=== PATIENT | male | born 1940 | race Caucasian/White ===

== ENCOUNTER 2023-09-06 07:26 | Inpatient (IN) | payer OTHER, SELFPAY ==
--- NOTE | 2023-08-29 10:16 | HPS.HSE ---
Family Physician
-
Family Physician: Elier Howard
Cardiology: Kishor Garibay
Chief Complaint
-
'Valve Problem'
History of Present Illness
Mr. Fidelina Clifton is a very pleasant 83-year-old gentleman with past medical history significant for moderate to severe aortic stenosis resulting in 1 admission for CHF to [facility] last Spring. He was diuresed for about 20 pounds
at that time. His echocardiogram from 12/29/2022 demonstrated a mildly dilated aortic root at 4 cm, and ascending aorta at 4.1 cm. He had calcified aortic valve with severe stenosis with peak velocity of 4.2 m/s and peak/mean gradients of 70/41 mmHg
respectively with calculated ISI of 0.6 (averaged in atrial fibrillation). He had mild mitral and tricuspid regurgitation. He had a mildly dilated LV with an LVEF estimated at 45%. He was transferred to [facility] for cardiac cath. His
cardiac catheterization demonstrated no significant CAD. It showed moderate with MG 30mmHg and ISI 1.4. He resides at [facility] and was discharged back to there on Bumex. He states that since that admission he has lost a
total of 100 pounds. He denies RENDON, orthopnea, chest pain, PND, palpitations. He states he can perform his ADLs without limitations but does not seem to ambulate. He did tell Dr. Murphy he was making progress with physical therapy and ambulating
50-100 feet with a walker. Today he states that he is no longer receiving therapy. He presents today in a reclining wheelchair and refused to stand for weight or to give urine sample.
Patient was reviewed with the Heart Team at the shared decision making meeting. Reviewed Echocardiogram and cardiac catheterization. Aortic stenosis felt to be severe and Heart team felt patient would benefit from TAVR. Plan is to proceed with 34mm
Evolut valve via transfemoral access. Reviewed with the patient and his daughter the risks of TAVR including PPM, Stroke and Bleeding. Allowed for and answered questions. Medication list reviewed. Patient to remain on all medications until day of
procedure. Will only take aspirin 81mg the morning of his TAVR procedure. Arrival time will be 0730.
Medical History
Past Medical History
Past Medical History: Reports CAD, CHF, HTN, Hypercholesterolemia, Hypothyroidism, NIDDM, Valvular Disease (Aortic stenosis, Mild TR and MR) and Other (Anemia, h/o JOSE, Muscle weakness)
Past Surgical History: Reports Other (Cardiac catheterization 11/24/2022)
Social History
Tobacco: Former Smoker (Quit 50+ years ago)
Alcohol: None
Drug: None
Personal:
Living: [facility])
Employment: Retired
Family History
Family History: Not pertinent
Allergies / Home Medications
Allergies reflects when Allergies were last updated in [facility].
Home Medications with original date entered in [employer]
Allergy/Medication List:
Allergies:
NKDA
Medications:
Acetaminophen 500 MG Capsule 1 capsule as needed Orally every 6 hrs
Aspirin 81(Aspirin) 81 MG Tablet Delayed Release 1 tablet Orally Once a day
Bumetanide 1 MG Tablet 1 tablet Orally Once a dayCalcium Carbonate 600 MG Tablet 1 tablet with food Orally Every 8 Hours
Carboxymethylcellulose Sod PF 0.5 % Solution as directed Ophthalmic Every 8 Hours
Crestor(Rosuvastatin Calcium) 10 MG Tablet 1 tablet Orally Once a day
Dulcolax(Bisacodyl) 10 MG Suppository 1 tablet as needed Orally Once a day
Ferrous Sulfate 325 (65 Fe) MG Tablet 1 tablet Orally Twice a Day
Glucophage
Lantus(Insulin Glargine) 100 UNIT/ML Solution as directed Subcutaneous
Magnesium Gluconate 27.5 MG Tablet 1 tablet Orally Twice a Day
Miconazole Antifungal(Miconazole Nitrate) 2 % Cream 1 application Externally Twice a day
Milk of Magnesia(Magnesium Hydroxide) 400 MG/5ML Suspension 5 mL at least 4 hours between doses as needed Orally Three Times a Day
Potassium Chloride ER 20 MEQ Tablet Extended Release 1 tablet with food Orally Once a day
Protonix(Pantoprazole Sodium) 20 MG Tablet Delayed Release 1 tablet Orally Once a day
Senna 8.6 MG Tablet 2 tablets at bedtime as needed Orally Once a day
Synthroid(Levothyroxine Sodium) 175 MCG Tablet 1 tablet in the morning on an empty stomach Orally Once a day
Tamsulosin HCl 0.4 MG Capsule 1 capsule Orally Once a day
traMADol HCl 50 MG Tablet 1 tablet as needed Orally Every 6 Hours
Voltaren 1 % Gel as directed Externally Three Times a Day
Review of Systems
-
History Source: Patient
Constitutional: Reports No Symptoms
EENT: Reports No Symptoms
Respiratory: Reports No Symptoms
Cardiac: Reports No Symptoms
Abdomen/GI: Reports Other (occasional bowel irregularity r/t diverticulosis)
: Reports No Symptoms
Musculoskeletal: Reports Edema (bilateral LE)
Skin: Reports No Symptoms
Neurological: Reports Weakness (LE)
Endocrine: Reports No Symptoms
Hematologic/Lymphatic: Reports No Symptoms
Psych: Reports No Symptoms
Physical Exam
Physical Exam
General: Well Developed, No Apparent Distress and Obese
HEENT: NormoCephalic and Moist mucous membranes
Respiratory: Clear and Non Labored Respirations
Cardiac: S1/S2, Regular Rhythm and Murmur (Grade II/)
Breast: Deferred by me
GI: Soft, Non Distended and Normal Bowel Sounds
Rectal: Deferred by Provider
Genito-urinary: Deferred by me
Musculoskeletal: Edema, Left Lower Extremity (trace) and Edema, Right Lower Extremity (trace)
Skin: Warm and Dry
Neuro: AO x 3
Psych: Calm
Laboratory Results
-
H/H: 12.3/35.2
BUN/Creat: 32/1.4
GFR: 49.56
Albumin: 4.2
Data Reviewed
-
Diagnostic Radiology: Report Reviewed by me (Chest x-ray with no scute cardio[pulmonary abnormality)
Medical Tests (Nuc Med, Echo, EKG etc): Report Reviewed by me (NSR, 65bpm, no conduction issues noted)
Lab Data: Labs Reviewed by me (H/H:12.3/35.2, BUN/Creat: 32/1.4, GFR: 49.56, Alb:4.2)
Old Records: Reviewed (Echocardiogram from [facility], Cardiac Cath from [facility]. Dr. Alvarez and Dr. Murphy Consult Notes)
Impression/Plan
-
IMPRESSION:
Severe aortic stenosis
PLAN:
-Proceed with TF-TAVR utilizing a 34mm Evolut Valve
-Continue Aspirin 81mg daily
-POD #1/#30 Echocardiogram
-Cardiac rehab consult
[2023-08-29 12:10] VITALS: BMI 34.1
[2023-08-29 12:58] LABS: Urine Albumin Trace (Neg - Trace); Urine Bilirubin Negative (Negative); Urine Character Very Cloudy (Clear); Urine Color Yellow; Urine Glucose Negative (Negative); Urine Ketone Negative (Negative); Urine Leukocyte 2+ (Negative); Urine Nitrite Negative (Negative); Urine Occult Blood 1+ (Negative); Urine Urobilinogen Negative (Neg - 1+)
[2023-08-29 13:00] LABS: % Basophils 0.9 % (0-2); % Eosinophils 4.3 % (0-6); % Immature Granulocytes 0.2 % (0-0.5); % Lymphocytes 16.7 % (20.5-51.1); % Neutrophils 68.9 % (42.2-75.2); Absolute Basophils 0.1 10^3/uL (0-0.2); Absolute Eosinophils 0.3 10^3/uL (0-0.7); Absolute Lymphocytes 1.1 10^3/uL (1.2-3.4); Absolute Monocytes 0.6 10^3/uL (0.1-0.6); Absolute Neutrophils 4.5 10^3/uL (1.4-6.5); Hematocrit 35.2 % (39.0-52.0); Hemoglobin 12.3 g/dL (13.0-18.0); Mean Corp Hgb Conc. 34.9 g/dL (33.0-37.0); Mean Corpuscular Hgb 33.5 pg (27.0-31.0); Mean Corpuscular Volume 95.9 fL (80.0-94.0); Mean Platelet Volume 8.9 fL (7.4-10.4); Nucleated Red Blood Cells % 0 % (-); Platelet Count 169 10^3/uL (130-400); Red Blood Cell Count 3.67 10^6/uL (4.70-6.10); Red Cell Dist. Width 12.3 % (11.5-14.5); White Blood Cell Count 6.5 10^3/uL (4.8-10.8)
[2023-08-29 13:12] LABS: INR 1.01; PT 13.3 Sec (11.4-14.6)
[2023-08-29 13:13] LABS: ALT (SGPT) 14 U/L (0-50); AST (SGOT) 21 U/L (17-59); Albumin 4.2 g/dl (3.5-5.0); Alkaline Phosphatase 94 U/L (38-126); Blood Urea Nitrogen 32 mg/dl (9-20); Calcium 9.2 mg/dl (8.4-10.2); Carbon Dioxide 29 mmol/L (22-30); Chloride 99 mmol/L (98-107); Direct Bilirubin 0.5 mg/dl (0.0-0.4); Estimated Creatinine Clearance 57 ml/min; Glucose 117 mg/dl (70-99); Potassium 4.1 mmol/L (3.5-5.1); Sodium 135 mmol/L (135-145); Total Bilirubin 0.9 mg/dl (0.2-1.3); Total Protein 7.4 g/dl (6.3-8.2); eGFR 49.56
[2023-08-29 13:14] LABS: APTT 27.8 Sec (23.4-35.0)
[2023-08-29 13:21] LABS: NT-proBNP 1550 pg/ml
[2023-08-29 13:27] LABS: Urine White Cell 80-90 /HPF (0-5)
[2023-08-29 13:28] LABS: Urine Bacteria Few (Negative); Urine Red Blood Cell 0-2 /HPF (0-2)
--- NOTE | 2023-08-29 14:11 | CM ---
Chart reviewed. Met with the patient and his daughter, Mamie in PAT. Patient is currently living in the equipment operator intermodal yard care at [facility]. Patient has been living there for 2.5 years. Patient is wheelchair bound and can bear minimal
weight on his own. [facility] has a transportation service to transport him back and forth to the facility. [place] is the [employer] to arrange transportation back and forth. Reviewed preoperative and postoperative instructions
with the patient and his daughter, along with showering guidelines. Gave the patient 2 soaps. Plan is for the patient to return back to [facility].
[2023-08-30 09:34] LABS: Glycohemoglobin (HgbA1c) 6.5 % (4.0-5.6)
[2023-09-06] VITALS (20 sets, daily range): BP systolic 97–165; BP diastolic 41–83; BMI 34.6
[2023-09-06 08:08] LABS: Glucose - Point of Care 121 mg/dl (70-99)
[2023-09-06] MEDS: STERILE WATER FOR INJECTION 16 ML IV ×2 (09:35→10:30)
[2023-09-06] MEDS: ZINACEF 1500 MG IV ×2 (09:35→10:30)
--- NOTE | 2023-09-06 09:51 | W.CVOR.SURPR ---
CVOR Surgeon Immed Pre Op
-
I have examined this patient prior to performance of the scheduled procedure.
The patient's condition is unchanged from the time of the dictated/written History and
Physical and the patient is able to undergo the scheduled procedure.
[2023-09-06 10:41] LABS: ACT-LR - POC 306 Seconds (116-155)
--- NOTE | 2023-09-06 11:05 | W.IMMPOSTOP ---
Addendum entered and electronically signed by Pete Murphy MD 09/06/23 11:25:
Dictated: [id number]
Original Note:
Surgical Immed Post Op Note
-
STRUCTURAL HEART PROCEDURE NOTE: TAVR
Preoperative Dx:
Severe aortic stenosis (P/M: 75.5/47.3, ISI 0.6)
Hx of CHF
Hx of AKF
Prior SC
Hypothyroidism
DM
Postoperative Dx:
Same
Procedures:
1) L CODING QUALITY COORDINATOR access w/ fluoroscopic & tactile guidance w/ micropuncture technique, 6Fr sheath placement, limited angiography
2) L CFV access w/ fluoroscopic guidance, micropuncture technique, 6Fr sheath placement
3) Placement of temporary RV pacing wire w/ threshold testing
4) Placement of pigtail catheter in NCC w/ limited aortography & confirmation of cusp overlap view
5) R CODING QUALITY COORDINATOR access w/ fluoroscopic & tactile guidance w/ micropuncture technique, 6Fr sheath placement, limited angiography
6) Placement of perclose sutures x 2; 8Fr sheath placement
7) Serial dilation of R ileofemoral system w/ placement of 18Fr COOK sheath
8) Wire purchase across stenotic AV (AL-1, soft-tip straight, J-wire, pigtail, lunderquist) - w/ LVEDP assessment (16mmHg)
9) Fluoroscopic inspection of valve
10) Pre-TAVR BAV w/ 25mm TRUE
11) R TF TAVR w/ placement of 34mm EVOLUT FX
12) Completion aortography
13) Completion TTE
14) Removal of valve-delivery system/in-line sheath w/ R CODING QUALITY COORDINATOR mgmt w/ perclose sutures x 2; manual pressure
15) Completion R ileofemoral angiography
16) Removal of L CODING QUALITY COORDINATOR 6Fr sheath w/ mgmt w/ 6Fr angioseal x 1; manual pressure
17) Removal of temporary pacing wire and L CFV 6Fr sheath w/ manual pressure
Laborer Road:
Dr. Tha Alvarez
Cardiac Surgeon:
Dr. Pete Murphy
Anesthesia:
MAC & local to B/L groins
Implants:
Perclose sutures x 2
6Fr angioseal x 1
Medtronix FX TAVR valve; 34mm, SN: [id number]
Cath Data:
Start: 1006hrs, Deploy: 1048hrs, End: 1101hrs
FT: 11min, mGy: 646.52, DAP: 66.3314, Contrast: 99mL
Post-TTE: ajtpy-ho-uxbb PVL; mean gradient 11mmHg
Complications:
No significant
New BBB
Condition:
Stable/guarded to recovery
--- NOTE | 2023-09-06 11:30 | ITS.CL.TAVR ---
Outboard Technician - TAVR Report
TAVR PRocedure
Procedure Report:
TRANSCATHETER AORTIC VALVE REPLACEMENT REPORT
Date: 09/06/2023
Referring physician: Kishor Garibay DO
Operators: Tha Alvarez MD, Pete Murphy MD
Procedure: Conscious sedation was provided by anesthesia. Using a micropuncture technique, 6F LFV and LFA sheaths were placed. Injection into the LFA sheath was performed to confirm a common femoral artery puncture site. A transvenous pacemaker was
placed into the RV apex with excellent thresholds. A pigtail catheter was advanced to the aortic root and low-volume injections performed to identify a cusp overlap angle for valve deployment. Access was then obtained in the RFA using the
micropuncture technique. Injection into the RFA sheath was performed to confirm a common femoral artery puncture site. At this point, two Perclose sutures were preset using the preclose technique. We then placed an 8 [place] sheath. Over a double
curved Lunderquist wire, the vessel was dilated with a 14 [place]ander dilator. This was followed by placement of an 18 [place] Cook sheath. Heparin 11,000 units was administered. The valve was crossed with an AL 1 diagnostic catheter and a straight
wire. A double curved Lunderquist wire was advanced into the LV apex through the pigtail catheter. Balloon aortic valvuloplasty was performed with a 25 mm adore balloon during rapid ventricular pacing. Hemodynamics recovered quickly. The 18 F
sheath was removed and exchanged for a 34 mm Medtronic Evolute pro valve. The valve was carefully advanced around the aortic arch and across the valve. Once ideal valve positioning was confirmed, the valve was very slowly deployed with ventricular
pacing at 100-120 per minute. The result was evaluated with both aortography and echocardiography which demonstrated an excellent result. There is a mean gradient of 11 mmHg with trace to mild paravalvular aortic insufficiency. The valve
deployment system was removed and hemostasis achieved with the two Perclose sutures. Angiography of the right iliofemoral system was accomplished and showed no evidence of significant dissection or perforation with good runoff below the femoral
bifurcation. The LFA sheath was removed with a 6 [place]ander Angio-Seal. The pacemaker was removed and the LFV sheath removed with manual compression.
Radiation
Dose (mGy): 646
DAP (cm2.Gy): 65.3
Fluoroscopy time: 11 minutes
Conclusion: Successful placement of 34 mm CoreValve Evolute Pro using a right percutaneous transfemoral approach with no acute complications
Tha Alvarez M.D.
Copy : Kishor Garibay DO, Zoie Chung DO
--- NOTE | 2023-09-06 11:34 | CM ---
Chart reviewed. Patient is in the OR today. 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 Patient has been living there for 2.5 years. Patient is wheelchair bound and can bear minimal weight on his own. [facility] has a transportation service to transport him back and forth to the facility. [place] is the [employer] to arrange transportation back and forth. Plan is for the patient to return to the [facility]
[2023-09-06 12:22] LABS: ACT-LR - POC > 397 Seconds (116-155)
[2023-09-06 12:50] LABS: Glucose - Point of Care 164 mg/dl (70-99)
[2023-09-06] MEDS: NOVOLOG FLEXPEN-MODERATE RESISTANCE SC (13:54)
[2023-09-06 14:04] LABS: Glucose - Point of Care 158 mg/dl (70-99)
[2023-09-06] MEDS: ZOFRAN 4 MG IV (15:02)
[2023-09-06] MEDS: REFRESH CELLUVISC GEL 1 DROPS BOTH EYES ×3 (15:03→21:59)
[2023-09-06] MEDS: FLUSH (NSS) 2 FLUSH IV ×2 (15:03→18:13)
[2023-09-06 18:12] LABS: Glucose - Point of Care 287 mg/dl (70-99)
[2023-09-06] MEDS: NOVOLOG FLEXPEN-MODERATE RESISTANCE 5 UNITS SC (18:12)
[2023-09-06] MEDS: ZINACEF 750 MG IV (18:13)
[2023-09-06] MEDS: STERILE WATER FOR INJECTION 8.30000000000000071 ML IV (18:13)
[2023-09-06] MEDS: FLOMAX 0.400000000000000022 MG PO (18:13)
[2023-09-06] MEDS: PROTONIX 40 MG PO (18:19)
[2023-09-06] MEDS: FEOSOL 325 MG PO (19:57)
[2023-09-06] MEDS: FLUSH (NSS) 1 FLUSH IV (19:57)
[2023-09-06 21:58] LABS: Glucose - Point of Care 236 mg/dl (70-99)
[2023-09-06] MEDS: SYNTHROID 175 MCG PO (21:58)
--- NOTE | 2023-09-07 00:19 | PTCARENOTE ---
Received pt at handoff. Tele- SR w/ LBBBC and 1st deg HB. R groin w/ sm amt of old sanguineous drainage noted; marked and unchanged from dayshift RN. L aakash c/d/i. Pneumatic compression devices on. Pt voiding into urinal. Pt offers no complaints at
this time. POC reviewed w/ pt. Verbalizes understanding. Currently resting in bed; call carrillo w/in reach.
[2023-09-07 04:41] VITALS: BP 145/57
--- NOTE | 2023-09-07 05:07 | W.PN.CT ---
Today's Communication / Plan
-
-pod #1
-nsr 50s-60s, PVCs. No significant pause (1.6 sec longest)
-new 1st degree AVB and LBBB- not on AVN blocking meds
-Echo today
-current meds (ASA, Bumex, Crestor, Flomax)
-encourage IS, OOB
Assessment / Plan
-
- Severe symptomatic - s/p Pre-TAVR BAV w/ 25mm TRUE and R TF TAVR w/ placement of 34mm EVOLUT FX on 09/06/23, pod #1
-Acute on chronic diastolic CHF, LVEDP assessment (16mmHgf)
-Post-TTE: bhxgy-bs-foed PVL; mean gradient 11mmHg
- CAD, prior MN
- Hx of JOSE
- DM II
- HTN/HLD
- Class 3 obesity (BMI 35)
- Pulmonary HTN ()
- Hypothyroidism
- Remote hx smoking, quit 50 yrs ago
- Acute postop 1st degree AVB and LBBB
Discussed patient care with: Nursing and Care Team
Subjective
Procedure
- s/p Pre-TAVR BAV w/ 25mm TRUE and R TF TAVR w/ placement of 34mm EVOLUT FX on 09/06/23
-
Date of Service: September 07, 2023
Objective Data
-
PT 13.3 Sec (11.4-14.6) 08/29/23 12:28
INR 1.01 08/29/23 12:28
APTT 27.8 Sec (23.4-35.0) 08/29/23 12:28
Vital Signs
Vital Signs
Temp Pulse Resp BP Pulse Ox
97.6 F 50 16 132/52 95
09/07/23 04:39 09/07/23 01:00 09/07/23 04:39 09/06/23 21:59 09/07/23 04:39
CT Intake/Output/Weight
09/06/23 09/06/23 09/07/23
06:59 18:59 06:59
Intake Total 1260 / 1260
Output Total 400 / 725 325 / 725
Balance 860 / 535 -325 / 535
SaO2: 95
Physical Exam
-
General: Awake and AOx3
Cardiovascular: Regular rate & rhythm, No Murmurs and No Rub
Respiratory: Clear
Incision: Other (groins are cdi, soft, nontender, no hematoma b/l)
Extremities: Other (trace edema b/l, 2+ DP b/l)
Data Reviewed
-
Lab Results: Results Reviewed
Medications: Active Meds Reviewed
Chest X-Ray: Report Reviewed and Image Reviewed
ECG: Report Reviewed and Image Reviewed
[2023-09-07 05:37] LABS: Hematocrit 33.5 % (39.0-52.0); Hemoglobin 11.8 g/dL (13.0-18.0); Mean Corp Hgb Conc. 35.2 g/dL (33.0-37.0); Mean Corpuscular Hgb 33.2 pg (27.0-31.0); Mean Corpuscular Volume 94.4 fL (80.0-94.0); Mean Platelet Volume 9.2 fL (7.4-10.4); Platelet Count 151 10^3/uL (130-400); Red Blood Cell Count 3.55 10^6/uL (4.70-6.10)
[2023-09-07 06:07] LABS: Blood Urea Nitrogen 37 mg/dl (9-20); Calcium 9.2 mg/dl (8.4-10.2); Carbon Dioxide 26 mmol/L (22-30); Chloride 101 mmol/L (98-107); Estimated Creatinine Clearance 62 ml/min; Glucose 177 mg/dl (70-99); Potassium 4.5 mmol/L (3.5-5.1); Sodium 135 mmol/L (135-145); eGFR 54.17
[2023-09-07] MEDS: REFRESH CELLUVISC GEL 1 DROPS BOTH EYES (08:13)
[2023-09-07] MEDS: CYMBALTA DELAYED RELEASE 20 MG PO (08:13)
[2023-09-07] MEDS: CRESTOR 10 MG PO (08:13)
[2023-09-07] MEDS: FEOSOL 325 MG PO (08:13)
[2023-09-07] MEDS: ASPIR LOW (ENTERIC COATED) 81 MG PO (08:13)
[2023-09-07] MEDS: BUMEX 1 MG PO (08:13)
[2023-09-07 08:14] VITALS: BP 124/56
--- NOTE | 2023-09-07 08:16 | W.DCSUMMARY ---
Discharge Summary
Discharge Data
Date of Admission: 09/06/23
Date of Discharge: 09/07/23
-
Pending Results: No
Hospital Course
Primary care physician: Elier Howard
Outpatient library supervisor: Kishor Garibay
Inpatient consultants: [facility] cardiology
Procedures:
1. Right TF TAVR #34 mm Evolut FX
Primary Diagnosis:
1. Severe aortic stenosis
Secondary Diagnoses:
1. Hypertension
2. Hyperlipidemia
3. Morbid obesity (BMI 34.6)
4. Hypothyroidism
5. Type 2 diabetes (A1C 6.5)
6. chronic kidney disease
7. Pulmonary hypertension ()
8. BPH
HPI: 83-year-old male electively admitted for TAVR
Hospital course: Patient underwent right transfemoral TAVR #34mm Evolut FX on 09/06/[address] Murphy and Kim. Patient was extubated in the operating room. Patient developed new left bundle branch block postoperatively and was bradycardic.
Patient was on Levophed in the initial postop period which was weaned off and patient was sent to the IVU. Patient creatinine 1.3 (stable) on POD #1. Patient will resume metformin on 09/08/2023. Predischarge echocardiogram (09/06) reported EF 65-70%
with AV gradient 19/10mmHg and mild AI. Dilated RV with normal systolic function. Patient prescribed Rhythm Star monitor upon discharge. Not on beta-kandy.
Home medication changes:
Start Metformin 09/07
Discharge Plan
-
Patient Disposition: Home (Routine Discharge)
Discharge Diagnosis/Procedures: TF-TAVR
Condition: Good
Diet: Low Cholesterol, 2 Gram Sodium and Diabetic, Carb Controlled
Activity: As tolerated
Driving Restrictions: No driving for 1 week
Bathing Restrictions: OK to Shower
Others Tests: Please call Dr. Garibay's office (Cardiology) to schedule a follow up echocardiogram for 30 days after your TAVR.
Other Services: Cardiac Rehab
Wound Care: Please do not apply lotions, creams or powders to groin areas. Please monitor groins for increased pain, swelling, redness or drainage.
Specialty Instructions: Weigh Daily- Call MD for wt gain/loss 3 lbs overnight/5 lbs in 1 week
Stop these medications:: start Metformin /
Referrals:
[facility] [Outside] ( )
Elier Howard MD [Family Provider] -
Kishor Nogueira PA [Non-Admitting Privileges] - 09/26/23 1:00 pm
Prescriptions:
Continued
levothyroxine [Synthroid] 175 mcg Tablet
175 mcg PO HS
acetaminophen 325 mg Tablet
650 mg PO Q6H MDD 3 GM/24hr PRN (Reason: Pain)
insulin glargine [Lantus U-100 Insulin] 100 unit/mL Solution
37 unit SC DAILY
polyethylene glycol 3350 [Miralax] 17 gram Powder In Packet
17 g PO DAILY
miconazole nitrate 2 % Cream
1 applic TOPICAL BID
magnesium hydroxide [Milk of Magnesia] 400 mg/5 mL Suspension
30 ml PO Q72H PRN (Reason: No BM in 3 days)
calcium carbonate 500 mg calcium (1,250 mg) Tablet
500 mg PO PRN PRN (Reason: Indigestion)
tamsulosin 0.4 mg Capsule
0.4 mg PO QPM
carboxymethylcellulose sodium 0.5 % Drops
1 drp BOTH EYES QID
bisacodyl [Dulcolax (bisacodyl)] 10 mg Suppository
10 mg HI Q8
ferrous sulfate 325 mg (65 mg iron) Tablet
325 mg PO BID
bumetanide 1 mg Tablet
1 mg PO DAILY
rosuvastatin [Crestor] 10 mg Tablet
10 mg PO DAILY
duloxetine 20 mg Capsule,Delayed Release(Dr/Ec)
20 mg PO DAILY
diclofenac sodium 1 % Gel
4 g TOPICAL BID
Rx Instructions:
to knees
magnesium gluconate 27.5 mg magne- sium (500 mg) Tablet
27.5 mg PO BID
potassium chloride 20 mEq Tablet Extended Release
20 meq PO QPM
senna
2 tab PO HS
aspirin 81 mg Tablet,Delayed Release (Dr/Ec)
81 mg PO DAILY
pantoprazole [Protonix] 20 mg Tablet,Delayed Release (Dr/Ec)
20 mg PO DAILY
metformin 1,000 mg Tablet
1,000 mg PO DAILY
Care Plan Goals
Care Plan Goals:
Problem: Readiness for enhanced knowledge related to diagnosis and treatment plan
Goal: Understand your diagnosis and treatment plan needs, including medications if applicable.
Instructions: Know your diagnosis, underlying causes and treatment plan options, including medications if applicable. Consult with your health care team to learn about your diagnosis and treatment plan, including medications if applicable.
--- NOTE | 2023-09-07 08:35 | W.PN.ANS.POP ---
Anesthesia Post Operative
- Anesthesia Post Op Note
Vital Signs Stable-See Nursing Note: Yes
Airway Patent: Yes
Adequate Pain Control: Yes
Change in Mental Status: No
Current Postoperative Nausea & Vomiting: No
Anesthesia Complications: No
General Anesthetic Recall: No
Unplanned Admission: No
Post Op Hydration Adequate: Yes
- -
Pt awake and alert- OOB to chair with no anesthesia c/o at time of post op visit.
[2023-09-07] MEDS: NOVOLOG FLEXPEN-MODERATE RESISTANCE 1 UNITS SC ×2 (09:00→12:39)
[2023-09-07 09:01] LABS: Glucose - Point of Care 169 mg/dl (70-99)
[2023-09-07] MEDS: LANTUS 0.369999999999999996 UNITS SC (09:01)
--- NOTE | 2023-09-07 10:57 | CM ---
CM following for DC planning needs.
Met w/ patient at bedside. He reports that he is feeling well.
Reviewed DC plan for return to [facility] correction/medical terminologist care unit. Pt. appears at functional baseline.
Call to [facility] admissions. They are aware of likely return admission today.
Will need to set up BLS transport.
RN report: [phone]
[2023-09-07 12:06] VITALS: BP 142/59
[2023-09-07 12:39] LABS: Glucose - Point of Care 173 mg/dl (70-99)
[2023-09-07 16:24] VITALS: BP 145/53
--- NOTE | 2023-09-07 17:45 | W.PN.UPDATE ---
Update Note
Progress Note Update
Seen and examined this am
Looked and felt great
New LBBB so will have 2 wk monitor applied
ECHO today looks good with mean grad 10, mild AI
F/U with Dr Kishor Garibay who is his outpt tool repair technician.
== END 2023-09-07 18:12 | DRG 266 ==
LOC: IVU 07:26
PROVIDERS: Physician Assistant Medical; ADMITTING PHYSICIAN Thoracic Surgery (Cardiothoracic Vascular Surgery); FAMILY PHYSICIAN Internal Medicine Geriatric Medicine
PROC: 02RF38Z Replacement of Aortic Valve with Zooplastic Tissue, Percutaneous Approach (ICD-10-PCS; 2023-09-06)
DX: I35.0 Nonrheumatic aortic (valve) stenosis (principal); I50.33 Acute on chronic diastolic (congestive) heart failure; I13.0 Hypertensive heart and chronic kidney disease with heart failure and stage 1 through stage 4 chronic kidney disease, or unspecified chronic kidney disease; I77.810 Thoracic aortic ectasia; I25.10 Atherosclerotic heart disease of native coronary artery without angina pectoris; E78.00 Pure hypercholesterolemia, unspecified; E03.9 Hypothyroidism, unspecified; E66.01 Morbid (severe) obesity due to excess calories; N18.9 Chronic kidney disease, unspecified; E11.22 Type 2 diabetes mellitus with diabetic chronic kidney disease; D63.1 Anemia in chronic kidney disease; I27.20 Pulmonary hypertension, unspecified; N40.0 Benign prostatic hyperplasia without lower urinary tract symptoms; I44.7 Left bundle-branch block, unspecified; R00.1 Bradycardia, unspecified; I25.2 Old myocardial infarction; Z68.34 Body mass index [BMI] 34.0-34.9, adult; Z79.4 Long term (current) use of insulin; Z79.82 Long term (current) use of aspirin; Z79.899 Other long term (current) drug therapy; Z87.891 Personal history of nicotine dependence
CPT/HCPCS: 93308; 33361; 36415; 71045; 71046; 80048; 80053; 81003; 81015; 82248; 82962; 83036; 83880; 85025; 85027; 85347; 85610; 85730; 86850; 86900; 86901; 87070; 87077; 87086; 87147; 87186; 93005; 93306; 93321; 93325; C1760; C1769; C1894; Q9967